=== PATIENT | female | born 1945 | race Caucasian/White ===

== ENCOUNTER 2021-12-26 12:33 | Emergency (ER) | payer MEDICARE ==
[~2021-12-26] VITALS: Ht 167.6 cm; Wt 46.0 kg
[~2021-12-26 12:33] MED LIST: AMIODARONE200 MG PO; AMIODARONE400 MG PO; CALCIUM PO; DILAUDID 2MG2 MG/TAB PO; HM LUTEIN20 MG; KENALOG15 GM/TUBE EX; LIPITOR20 MG PO; MAG PO; MET12.5TAB PO; PEPCID20 MG PO; PREDNISONE10 MG PO; VALTREX1 GM PO; VIT D PO; XARELTO20 MG PO
[2021-12-26] MEDS ORDERED: MEMANTINE HYDRO14 MG PO (12:56)
[2021-12-26] MEDS ORDERED: CARBIDOPA/LEVOD1 TA4 PO (12:57)
[2021-12-26] MEDS ORDERED: NUPLAZID34 MG PO (12:58)
[2021-12-26] MEDS ORDERED: CEPHALEXIN500 MG PO (16:36)
[2021-12-26 17:00] VITALS: BP 132/68
[2021-12-27] MEDS ORDERED: CEPHALEXIN500 MG PO (13:19)
== END 2021-12-26 17:00 | disposition home or self-care (01) ==
LOC: ED 12:33
PROC: 0HQLXZZ Repair Left Lower Leg Skin, External Approach (ICD-10-PCS; principal; 2021-12-26)
DX: S81.812A Laceration without foreign body, left lower leg, initial encounter (principal); I10 Essential (primary) hypertension; G20 Parkinson's disease; F02.80 Dementia in other diseases classified elsewhere, unspecified severity, without behavioral disturbance, psychotic disturbance, mood disturbance, and anxiety; W22.09XA Striking against other stationary object, initial encounter; Z85.038 Personal history of other malignant neoplasm of large intestine

== ENCOUNTER 2022-11-09 11:21 | Inpatient (IN) | payer MEDICARE ==
[2022-11-09] VITALS (8 sets, daily range): BP systolic 140–184; BP diastolic 60–133
[~2022-11-09] VITALS: Ht 167.6 cm; Wt 46.0 kg
[~2022-11-09 11:21] MED LIST changes: +CARBIDOPA/LEVOD1 TA4 PO; +CEPHALEXIN500 MG PO; +MEMANTINE HYDRO14 MG PO; +NUPLAZID34 MG PO
--- NOTE | 2022-11-09 13:00 | NUR ---
PATIENT ESCORTED TO ROOM VIA WHEELCHAIR IN NAD. PROVIDER NOTIFIED OF PATIENT STATUS.
--- NOTE | 2022-11-09 14:47 | NUR ---
PT IN ROOM. NO DISTRESS NOTED
--- NOTE | 2022-11-09 15:12 | NUR ---
PT WHEELED TO BATHROOM BY DAUGHTER TO PROVIDE URINE SAMPLE
[2022-11-09 15:52] LABS: URINE BILIRUBIN - DIPSTICK NEGATIVE (NEGATIVE); URINE BLOOD DIPSTICK NEGATIVE (NEGATIVE); URINE COLOR YELLOW; URINE GLUCOSE - DIPSTICK NEGATIVE (NEGATIVE); URINE KETONE TRACE mg/dL (NEGATIVE); URINE LEUK ESTERASE NEGATIVE (NEGATIVE); URINE PH 7.5 (4.5-8.0); URINE PROTEIN - DIPSTICK TRACE mg/dL (NEG-TRACE); URINE UROBILINOGEN - DIPSTICK 0.2 E.U./dL (0.2)
[2022-11-09 15:54] LABS: IMMATURE GRANULOCYTES 0.6 % (0.0-5.0); MEAN CELL VOLUME 91.6 fL CALC (80.0-100.0); MEAN CORPUSCULAR HGB 30.5 pG CALC (26.0-32.0); MEAN CORPUSCULAR HGB CONC 33.3 g/dL CAL (32.0-36.0); NEUT# 6.27 thou/uL (2.00-7.15); RED BLOOD COUNT 4.91 mill/uL (4.20-5.60); RED CELL DISTRI WIDTH 14.1 % (11.5-15.5)
[2022-11-09 16:08] LABS: URINE NITRITE - DIPSTICK NEGATIVE (Negative)
--- NOTE | 2022-11-09 16:54 | NUR ---
PT IN ROOM. NO DISTRESS NOTED. DAUGHTER IN ROOM
[2022-11-09 16:58] LABS: ALBUMIN 4.2 g/dL (3.2-5.0); ALKALINE PHOSPHATASE 56 u/l (38-126); ANION GAP 9 (6-22 (CALC)); BILIRUBIN, TOTAL 0.6 mg/dL (0.0-1.4); BUN 26 mg/dL (8-23); BUN/CREATININE RATIO 39 (12-20 (CALC)); CARBON DIOXIDE 28 mmol/l (22-30); CHLORIDE 104 mmol/l (95-108); CREATININE 0.7 mg/dL (0.5-1.0); GFR FOR AFR.AMER. > 60 ML/MIN (>=60 (CALC)); GFR OTHER RACES > 60 ML/MIN (>=60 (CALC)); POTASSIUM 4.6 mmol/l (3.5-5.1); SGOT/AST 36 u/l (9-36); SODIUM 136 mmol/l (137-146); TOTAL PROTEIN 6.7 g/dL (6.3-8.2)
--- NOTE | 2022-11-09 16:58 | NUR ---
TELECART IN ROOM PER MD ORDER.
--- NOTE | 2022-11-09 17:20 | NUR ---
DR. YUAN CALLED FOR TELESTROKE CONSULT.
[2022-11-09] MEDS ORDERED: DHIVY 100-25 MG1 TAB PO (17:33)
[2022-11-09] MEDS ORDERED: NAMENDA XR14 MG (17:34)
[2022-11-09] MEDS ORDERED: ESOMEPRAZOLE (17:35)
[2022-11-09] MEDS ORDERED: VAZALORE81 MG (17:36)
[2022-11-09] MEDS ORDERED: CARBIDOPA/LEVOD1 TA4 (17:38)
--- NOTE | 2022-11-09 18:19 | NUR ---
Admission Note Report Given to: JUAN GRAVES Transported by: Wheelchair X Stretcher Transported with: X Nurse Transporter X Patent IV O2 X Type Soldering Machine Tender Location: ICU X MS2 TO ROOM 262.
--- NOTE | 2022-11-09 20:16 | NUR ---
PATIENT RESTING IN BED-AWAKE ALERT ORIENTED TO PERSON, PLACE AND BIRTHDATE. BP-180/80- MANUAL. MEDICATED WITH APRESOLINE 10MG IVP ORDER FOR HTN VIA LAC IV SITE. SITE IS HEALTHY WITH BLOOD RFETURN. IVF NS HUNG AND INFUSING AT 75CC/HR. MEDICATED FOR GENERALIZED PAIN WITH ULTRAM 50MG PO. PATIENT WAS ABLE TO TAKE MED WITHOUT ANY DIFFICULTY WITH WATER. NO COUGH OR DIFFICULTY SWALLOWING AT THIS TIME. PATIENT WITH TELE MONITOR IN PLACE- SR-70'S. LUNGS ARE CLEAR. ABD IS SOFT WITH ACTIVE BS. PATIENT WITH EQUAL HAND GRASPS AND ABLE TO MOVE ALL EXTREMITIES. HIGH ANXIETY AT TIMES. 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 NO PERIPHERAL EDEMA NOTED AND PULSES ARE PALPABLE. SAFETY PRECAUTIONS REINFORCED. BED ALARM IN PLACE FOR PATIENT SAFETY. CALL LIGHT IN REACH. WILL CONT TO MONITOR.
--- NOTE | 2022-11-09 21:14 | NUR ---
PATIENT RESTING IN BED-DAUGHTER AT BEDSIDE. BP IS DOWN-140/60. STATES THAT SHE NEEDS TO URINATE AND MAX ASSIST OOB TO THE BSC. PATIENT WITH VERY SPASTIC MOVEMENT OF ARMS AND LEGS. PATIENT WITH HX OF PARKINSONS. WAS ABLE TO VOID MODERATE AMT OF YELLOW URINE AND ASSISTED BACK TO BED. BED ALARM IN PLACE FOR PATIENT SAFETY. SIDERAILS ARE PADDED FOR PATIENT SAFETY. CALL LIGHT IN REACH. WILL CONT TO MONITOR.
[2022-11-10] VITALS (7 sets, daily range): BP systolic 140–159; BP diastolic 60–71
--- NOTE | 2022-11-10 00:26 | NUR ---
PATIENT RESTING IN BED WITH DAUGHTER AT BEDSIDE. EYES ARE CLOSED AND RESPS ARE EVEN AND UNLABORED. IVF PATENT ANDINFUSING VIA LAC SITE AT 75CC/HR. SITE REMAINS HEALTHY AT THIS TIME. TELE MONITOR IN PLACE WITH LAST READING SR-[address] FOR PATIENT SAFETY. CALL LIGHT IN REACH. WILL CONT TO MONITOR.
--- NOTE | 2022-11-10 02:56 | NUR ---
PATIENT RESTING IN BED-IV FOUND DISLODGED WITH CATH INTACT. NEW IV STARTED TO LEFT FOREARM-#22 GAUGE WITH GOOD BLOOD RETURN. IVF NS INFUSING AT 75CC/HR. TELE MONITOR IN PLACE. DAUGHTER REMAINS AT BEDSIDE FOR PATIENT SAFETY. BED ALARM IN PLACE FOR PATIENT SAFETY. CALL LIGHT IN REACH. WILL CONT TO MONITOR.
--- NOTE | 2022-11-10 05:16 | NUR ---
PATIENT RESTING IN BED AT THIS TIME WITH DAUGHTER AT BEDSIDE. EYES ARE CLOSED AND RESPS ARE EVEN AND UNLABORED. IVFF PATENT AND INFUSING VIA LEFT FOREARM SITE AT 75CC/HR. TELE MONITOR IN PLACE WITH LAST READING SR-90'S. BED ALARM IN PLACE FOR PATIENT SAFETY. CALL LIGHT IN REACH. WILL CONT TO ABDIRASHID.
--- NOTE | 2022-11-10 08:00 | NUR ---
GOT REPORT FROM LITHARGE MILL OPERATOR NURSE. PATIENT ASSESSED. AOX4. PATIENT HAS FALL PRECAUTIONS IN PLACE. CALL LIGHT AND BED SIDE TABLE WITH IN REACH. ADVISED TO CALL IF NEEDING ANYTHING.
--- NOTE | 2022-11-10 12:00 | NUR ---
PATIENT IS SITTING UP IN BED EATING. NO SXS OF DISTRESS. NO CONCERNS OR QUESTIONS FROM PATIENT AT THIS TIME . ADVISED TO CALL IF NEEDING ANYTHING. PATIENT VERBALIZED UNDERSTANDING.
--- NOTE | 2022-11-10 17:13 | NUR ---
patient is starting to get aggitated. keep going in and having her lay down. she is unsteady on her feet. bed alarm is on and notified nurse.
--- NOTE | 2022-11-10 19:30 | NUR ---
PATIENT YAHAIRA RESTLESS AND AGITATED IN BED WITH DAUGHTERS AT BEDSIDE. STATES THAT SHE HAS BEEN LIKE THIS ALL DAY WITH HALLUCINATIONS AND THRASHING ABOUT IN THE BED. MEDICATED PATIENT WITH SINEMET ORDERED AND HEPARIN SQ. IV SITE TO LEFT FOREARM REMAINS INTACT AND HEALTHY. TELE MONITOR REAPPLIED LEADS WERE DISCONNECTED DUE TO RESTLESS ACTIVITY. PATIENT IS ORIENTED TO PERSON AND BIRTHDATE ONLY. PATIENT IS MOSTLY CONFUSED TO PLACE AND TIME-SPEAKING INAPPROPRIATELY. FAMILY REMAINS AT BEDSIDE. BED ALARM IN PLACE FOR PATIENT SAFETY. CALL LIGHT IN REACH. WILL CONT TO MONITOR.
--- NOTE | 2022-11-10 20:45 | NUR ---
PATIENT RESTING IN BED-REMAINS EXTREMELY AGITATED, HAVING HALLUCINATIONS AND SEVERE TREMORS OF HANDS. VERY RESTLESS. MEDICATED WITH HALDOL 2MG IVP ORDERED FOR AGITATION VIA LEFT FOREARM IV SITE. SITE REMAINS HEALTHY WITH GOOD BLOOD RETURN. TELE MONITOR REMAINS IN PLACE. BED ALARM IN PLACE FOR PATIENT SAFETY. CALL LIGHT IN REACH. WILL CONT TO MONITOR.
--- NOTE | 2022-11-10 23:00 | NUR ---
PATIENT CONT TO BE EXTREMELY AGITATED. THRASHING ABOUT IN THE BED. HALLUCINATING AND PICKING AT LINENS AND IN SPACE. SPEAKING OUT WITHOUT MAKING ANY SENSE. CALL PLACE TO DR. CONDE AND NEW ORDERS RECIEVED. MEDICATED WITH ATIVAN 1MG IVP VIA LEFT FOREARM SITE. SITE REMAINS HEALTHY WITH GOOD BLOOD RETURN. INCONT OF MODERATE AMT OF U RINE AND PERICARE PROVIDED. NEW BREIF WAS APPLIED. PATIENT CURRENTLY RESTING MORE QUIETLY. BED ALARM INP LACE FOR PATIENT SAFETY. CALL LIGHT IN REACH. WILL CONT TO MONITOR.
[2022-11-11] VITALS (7 sets, daily range): BP systolic 113–176; BP diastolic 47–101
--- NOTE | 2022-11-11 02:17 | NUR ---
PATIENT RESTING IN BED WITH EYES CLOSED. RESPS ARE EVEN AND UNLABORED. MUCH CALMER AT THIS TIME. TELE MONITOR IN PLACE. BED ALARM IN PLACE FOR PATIENT SAFETY. CALL LIGHT IN REACH. WILL CONT TO MONITOR.
--- NOTE | 2022-11-11 04:44 | NUR ---
PATIENT CONTINUES TO REST QUIETLY IN BED. EYES CLOSED AND RESPS ARE EVEN AND UNLBAORED. TELE MONITOR IN PLACE. IVF NS PATENT AND INFUSING VIA LEFT FOREARM SITE AT 75CC/HR. BED ALARM IN PLACE FOR PATIENT SAFETY. CALL LIGHT IN REACH. WILL CONT TO MONITOR.
--- NOTE | 2022-11-11 09:02 | NUR ---
PT IS IN BED EYES CLOSED AND HAVING HALLUCINATIONS. PT UNABLE TO ANSWER ORIENTATION QUESTIONS, AND FOLLOWS MINIMAL COMMANDS, PT HAS NO S/SX OF PAIN, SOB. PT VS ASSESSED. PT IS ON FALL PRECAUTIONS, BED ALARM ACTIVE. WILL CONTINUE TO MONITOR.
[2022-11-11 09:34] LABS: HEMOGLOBIN 14.7 g/dl (12.0-16.0); IMMATURE GRANULOCYTES 0.2 % (0.0-5.0); MEAN CELL VOLUME 91.3 fL CALC (80.0-100.0); MEAN CORPUSCULAR HGB 30.5 pG CALC (26.0-32.0); MEAN CORPUSCULAR HGB CONC 33.4 g/dL CAL (32.0-36.0); NEUT# 4.96 thou/uL (2.00-7.15); RED BLOOD COUNT 4.82 mill/uL (4.20-5.60); RED CELL DISTRI WIDTH 13.8 % (11.5-15.5)
[2022-11-11 10:29] LABS: ALBUMIN 3.8 g/dL (3.2-5.0); ALKALINE PHOSPHATASE 57 u/l (38-126); ANION GAP 9 (6-22 (CALC)); BILIRUBIN, TOTAL 0.6 mg/dL (0.0-1.4); BUN 17 mg/dL (8-23); BUN/CREATININE RATIO 30 (12-20 (CALC)); CARBON DIOXIDE 25 mmol/l (22-30); CHLORIDE 108 mmol/l (95-108); CREATININE 0.6 mg/dL (0.5-1.0); GFR FOR AFR.AMER. > 60 ML/MIN (>=60 (CALC)); GFR OTHER RACES > 60 ML/MIN (>=60 (CALC)); SGOT/AST 39 u/l (9-36); SODIUM 137 mmol/l (137-146); TOTAL PROTEIN 5.8 g/dL (6.3-8.2)
--- NOTE | 2022-11-11 10:35 | NUR ---
PT HAS BEEN TRANSPORTED TO MRI. PT REQUIRES ASSISTANCE FROM BED TO W/C. PT DAUGHTER IS WITH DURING TRANSPORT AND IS ALSO WAITING IN MRI.
--- NOTE | 2022-11-11 11:47 | NUR ---
PT HAS RETURNED BACK TO ROOM.
[2022-11-11] MEDS ORDERED: LIPITOR20 M1 PO (12:24)
--- NOTE | 2022-11-11 13:35 | NUR ---
PT BECOMING EXTREMELY AGITATED, PT WILL BE MEDICATED PROPERLY. PT HAS BED ALARM ACTIVE FOR FURTHER SAFETY. WILL CONTINUE TON MONITOR.
--- NOTE | 2022-11-11 16:39 | NUR ---
PT IS IN BED FIDGETING IN BED WITH BLANKETS, AND GOWN. PT NOT FOLLOWING BASIC COMMANDS AT THIS TIME. PT IS ON FALL PRECAUTIONS AND BED ALARM IS ACTIVE. DAUGHTER IS AT BEDSIDE.
--- NOTE | 2022-11-11 18:20 | NUR ---
PT IS SLEEPING AND RESTING IN BED, PT HAS BEEN REPOSITIONED IN BED AND HAS BED ALARM ACTIVE.
[2022-11-11] MEDS ORDERED: MEMANTINE HYDROC5 MG PO (18:58)
--- NOTE | 2022-11-11 19:30 | NUR ---
RECIEVED BEDSIDE REPORT FROM DAYSHIFT NURSE. PT IS VERY AGITATED AND CONFUSED. PT TRYING TO CLIIMB OUT OF BED, TAKING OFF TELE MONITOR, PULLING AT IV. IV SITE WAS WRAPPED WITH COBAN. BED ALARM ON AND SAFETY PRECAUTIONS IN PLACE INFORMED OF PT BEHAVIOR. MEDICATION ORDERED THROUGH [facility] AND FAXED TO PHARMACY. PT DAUGHTER WAS INFORMED OF CURRENT BEHAVIOR AND REQUESTED MEDICATION NOT BE USED. PT BEHAVIOR UNCHANGED AT THIS MOMENT. DAUGHTER IN ROOM WITH PT. SAFETY PRECAUTIONS IN PLACE AND WILL CONTINUE TO MONITOR PT.
[2022-11-12] VITALS (7 sets, daily range): BP systolic 111–186; BP diastolic 65–79
--- NOTE | 2022-11-12 00:12 | NUR ---
PT LAYING SUPINE IN BED. DAUGHTER IN ROOM AT BEDISDE WITH PT. PT STILL CONFUSED WITH MUMBLED SPEECH BUT NO SIGNS OF HIGH ANXIETY. NO S/S OF DISTRESS AND DENIES ANY PAIN AT THIS TIME. SAFETY PRECAUTIONS IN PLACE AND CALL LIGHT WITHIN REACH.
--- NOTE | 2022-11-12 04:21 | NUR ---
PT IN BED SLEEPING LAYING SUPINE. NO S/S OF DISCOMOFRT. DAUGHTER AT BEDSIDE. THANH LIGHT WITHIN REACH AND SAFETY PRECAUTIONS IN PLACE.
[2022-11-12 05:14] LABS: HEMATOCRIT 44.5 % (37.0-47.0); HEMOGLOBIN 14.9 g/dl (12.0-16.0); MEAN CELL VOLUME 92.7 fL CALC (80.0-100.0); MEAN CORPUSCULAR HGB CONC 33.5 g/dL CAL (32.0-36.0); NEUT# 4.27 thou/uL (2.00-7.15); RED BLOOD COUNT 4.8 mill/uL (4.20-5.60)
[2022-11-12 05:26] LABS: ALBUMIN 4.2 g/dL (3.2-5.0); ALKALINE PHOSPHATASE 64 u/l (38-126); ANION GAP 12 (6-22 (CALC)); BILIRUBIN, TOTAL 0.8 mg/dL (0.0-1.4); BUN 18 mg/dL (8-23); BUN/CREATININE RATIO 32 (12-20 (CALC)); CARBON DIOXIDE 28 mmol/l (22-30); CHLORIDE 106 mmol/l (95-108); CREATININE 0.6 mg/dL (0.5-1.0); GFR FOR AFR.AMER. > 60 ML/MIN (>=60 (CALC)); GFR OTHER RACES > 60 ML/MIN (>=60 (CALC)); POTASSIUM 3.8 mmol/l (3.5-5.1); SGOT/AST 44 u/l (9-36); SODIUM 143 mmol/l (137-146); TOTAL PROTEIN 6.6 g/dL (6.3-8.2)
--- NOTE | 2022-11-12 08:29 | NUR ---
PT IS SITTING UP IN BED, AND TRYING TO CONTINUOUSLY GET OOB, SPOKE TO ASSISTANT PROFESSOR IN FAMILY STUDIES AND AWAITING ORDERS. PT IS UNABLE TO ANSWER ORIENTATION QUESTIONS, NOT FOLLOWING COMMANDS AND HAS BEEN REPOSITIONED IN BED, PT HAS BEEN PLACED ON FALL PRECAUTIONS AND BED ALARM IS ACTIVE, SITTER IS AT BEDSIDE. WILL CONTINUE TO MONITOR.
--- NOTE | 2022-11-12 11:09 | NUR ---
Pt in bed in vasques position, STERILE SUPPLY TECHNICIAN taking vs. She was unable to answer any questions, She was talking some but difficult to understand. Pt not following commands and became agitated with movement. Pt not appropriate for treatment at this time.
--- NOTE | 2022-11-12 12:30 | NUR ---
PT HAS BEEN RESTLESS, DAUGHTER ARRIVED AND PT HAS SEEMED TO BECOME MORE RELAXED. PT HAS SITTER NEARBY, PT HAS BED ALARM IN PLACE. WILL CONTINUE TO MONITOR.
--- NOTE | 2022-11-12 17:03 | NUR ---
PT BECOMING RESTLESS, AND IS CLIMBING OVER BED RAILS, SITTER AND DAUGHTER PRESENT. PT HAS BEEN MEDICATED PER DR ORDER. PT IS BEING MONITORED.
--- NOTE | 2022-11-12 19:02 | NUR ---
PT IN BED, SON AT BED SITE. BREATHING IS EVEN AND NON LABORED. ASSESSED PT AT BEDSIDE. IV SITE FLUSHED. PT A/O X1. DENIES PAIN OR DISCOMFORT. PROVIDED A WARM BLANKET. CALL LIGHT BY PT. ALL SAFETY PRECAUTIONS IN PLACE AT THIS TIME
[2022-11-13] VITALS (9 sets, daily range): BP systolic 103–186; BP diastolic 58–102
--- NOTE | 2022-11-13 | NUR ---
PT IN BED SLEEPING. DAUGHTER AT BEDSIDE. TELE IN PLACE. PT RESTLESS AND SPEAKING TO PEOPLE ONLY THE PT CAN SEE. PT DENIES PAIN. ALL SAFETY PRECAUTIONS IN PLACE AT THIS TIME.
--- NOTE | 2022-11-13 00:52 | NUR ---
PT MEDICATED FOR HIGH BLOOD PRESSURE AND AGITATION. WILL CONTIUE TO MONITOR
--- NOTE | 2022-11-13 02:11 | NUR ---
MEDICATED PT FOR PAIN DUE TO PT GRIMACING, RESTLESS AND APPEARS VERY UNCOMFORTABLE
--- NOTE | 2022-11-13 04:00 | NUR ---
PT SLEEPING, BREATHING REMAINS THE SAME. DAUGHTER AT BEDSIDE. TELE IN PLACE. PT COVERED IN A WARM BLANKET. DENIES ANY NEEDS AT THIS TIME. ALL SAFETY PRECAUTIONS IN PLACE AT THIS TIME
--- NOTE | 2022-11-13 05:40 | NUR ---
PT TELE READING MAINTAINING IN THE 120s and HIGH ONE TEENS. PT ALSO RESTLESS AND CALLING OUT. INFORMED RN ON UNIT AND WAS TOLD TO MEDICATE PT WITH ATIVAN EARLY.
[2022-11-13 07:28] LABS: BASO% 0.3 % (0-3); EOS% 2.4 % (0-8); HEMATOCRIT 47.6 % (37.0-47.0); HEMOGLOBIN 15.8 g/dl (12.0-16.0); IMMATURE GRANULOCYTES 0.1 % (0.0-5.0); LYMPH% 13.2 % (15-41); MEAN CELL VOLUME 92.8 fL CALC (80.0-100.0); MEAN CORPUSCULAR HGB 30.8 pG CALC (26.0-32.0); MEAN CORPUSCULAR HGB CONC 33.2 g/dL CAL (32.0-36.0); MONO% 9.9 % (2-13); NEUT# 4.95 thou/uL (2.00-7.15); NEUT% 74.1 % (42-76); RED BLOOD COUNT 5.13 mill/uL (4.20-5.60); RED CELL DISTRI WIDTH 14.1 % (11.5-15.5)
[2022-11-13 08:06] LABS: ALBUMIN 4.1 g/dL (3.2-5.0); ALKALINE PHOSPHATASE 64 u/l (38-126); ANION GAP 14 (6-22 (CALC)); BILIRUBIN, TOTAL 0.8 mg/dL (0.0-1.4); BUN 24 mg/dL (8-23); BUN/CREATININE RATIO 33 (12-20 (CALC)); CARBON DIOXIDE 24 mmol/l (22-30); CHLORIDE 107 mmol/l (95-108); CREATININE 0.7 mg/dL (0.5-1.0); GFR FOR AFR.AMER. > 60 ML/MIN (>=60 (CALC)); GFR OTHER RACES > 60 ML/MIN (>=60 (CALC)); POTASSIUM 4.3 mmol/l (3.5-5.1); SGOT/AST 39 u/l (9-36); SODIUM 141 mmol/l (137-146); TOTAL PROTEIN 6.4 g/dL (6.3-8.2)
--- NOTE | 2022-11-13 08:18 | NUR ---
REPORT FROM ELLIE IS RECEIVED IN. ALERT AND ORIENTED PATIENT X1. RESTING IN BED WITH EYES CLOSED. PATIENT WITH SITTER'S ORDER FOR FALL PRECAUTION. SAFETY AND FALL PRECAUTIONS IN PLACE. CALL LIGHT WITHIN IN REACH.
--- NOTE | 2022-11-13 10:46 | NUR ---
SPEECH PATHOLOGY-- WELT SLASHER ATTEMPTED TO SEE PT. NOT ABLE TO WAKE UP IN AM. WILL CONTINUE TO FOLLOW FOR DIET TOLERANCE.
--- NOTE | 2022-11-13 12:00 | NUR ---
PT RESTING IN BED. STATES NO PAIN. TELE MONITOR IN PLACE. CONTINOUS MONITORING FALL/SAFTEY PRECAUTION IN PLACE, CALL LIGHT WITHIN REACH.
--- NOTE | 2022-11-13 12:37 | NUR ---
Attempted treatment this am. Daughter at bedside and reported this was the first pt had slept all week. Treatment held at this time.
--- NOTE | 2022-11-13 16:37 | NUR ---
PATIENT RESTING IN BED. RESPS ARE EVEN AND UNLABORED. PATIENT AGITATED SITTER AT BEDSIDE. TELE MONITOR IN PLACE. BED ALARM IN PLACE FOR PATIENT SAFETY. CALL LIGHT IN REACH. WILL CONT MONITOR. SITTER AT BED SIDE
--- NOTE | 2022-11-14 | NUR ---
PT IN BED WITH EYES CLOSED. UNABLE TO GET VITALS DUE RESISTANT AND SNATCHING AWAY FROM NURSE AND TECH. DAUGHTER AT BEDSIDE. DR ROQUE CALLED REGARDING INCREASED RESTLESSNESS, AGITATION AND CLINBING OUT OF BED. aWAITING ORDERS. WILL CONTINUE TO OBSERVE
[2022-11-14 06:01] LABS: BASO% 0.3 % (0-3); EOS% 2.5 % (0-8); HEMATOCRIT 45.2 % (37.0-47.0); HEMOGLOBIN 15.4 g/dl (12.0-16.0); IMMATURE GRANULOCYTES 0.2 % (0.0-5.0); LYMPH% 19.6 % (15-41); MEAN CELL VOLUME 92.1 fL CALC (80.0-100.0); MEAN CORPUSCULAR HGB 31.4 pG CALC (26.0-32.0); MEAN CORPUSCULAR HGB CONC 34.1 g/dL CAL (32.0-36.0); NEUT# 3.98 thou/uL (2.00-7.15); NEUT% 67.4 % (42-76); RED BLOOD COUNT 4.91 mill/uL (4.20-5.60); RED CELL DISTRI WIDTH 14.4 % (11.5-15.5)
[2022-11-14 06:13] LABS: ALBUMIN 4.1 g/dL (3.2-5.0); ALKALINE PHOSPHATASE 64 u/l (38-126); ANION GAP 15 (6-22 (CALC)); BILIRUBIN, TOTAL 0.6 mg/dL (0.0-1.4); BUN 43 mg/dL (8-23); BUN/CREATININE RATIO 57 (12-20 (CALC)); CARBON DIOXIDE 26 mmol/l (22-30); CHLORIDE 108 mmol/l (95-108); CREATININE 0.8 mg/dL (0.5-1.0); GFR FOR AFR.AMER. > 60 ML/MIN (>=60 (CALC)); GFR OTHER RACES > 60 ML/MIN (>=60 (CALC)); SGOT/AST 32 u/l (9-36); SODIUM 144 mmol/l (137-146); TOTAL PROTEIN 6.6 g/dL (6.3-8.2)
[2022-11-14 06:30] VITALS: BP 145/75
--- NOTE | 2022-11-14 08:00 | NUR ---
BEDSIDE SHIFT REPORT, PT SLEELPING BUT AROUSES TO TACTILE STIMULI, CONFUSED, NO SIGN DISCOMFORT, BREATHING EVEN AND NON-LABORED, TELE MONITOR IN PLACE, SITTER IN ROOM, BED LOCKED IN LOWEST POSITOIN WITH CALL CUNHA IN REACH AND ALARM ACTIVATED.
--- NOTE | 2022-11-14 11:45 | NUR ---
Pt sleeping with DISTRIBUTION CENTER SUPERVISOR present. She reported 2 person assist to bath pt this am secondary to pt restlessness. Pt was trying to get out of bed with them. Treatment held secondary to sleeping and inability to participate.
--- NOTE | 2022-11-14 12:00 | NUR ---
AGITATED AND RESTLESS AT 1200 REMOVING CLOTHING, NEW MED ORDEERED AND GIVEN, WILL CONTINUE TO MONITOR.
--- NOTE | 2022-11-14 16:00 | NUR ---
RELAXED AT THIS [id number], SITTER AT BEDSIDE, MENTATION REMAINS UNCHANGED.
[2022-11-15 05:25] VITALS: BP 128/54
[2022-11-15 06:13] LABS: BASO% 0.4 % (0-3); EOS% 3.4 % (0-8); HEMOGLOBIN 15.8 g/dl (12.0-16.0); LYMPH% 17.6 % (15-41); MEAN CELL VOLUME 92.9 fL CALC (80.0-100.0); MEAN CORPUSCULAR HGB 31.2 pG CALC (26.0-32.0); MEAN CORPUSCULAR HGB CONC 33.6 g/dL CAL (32.0-36.0); MONO% 9.3 % (2-13); NEUT# 3.5 thou/uL (2.00-7.15); NEUT% 69.3 % (42-76); RED BLOOD COUNT 5.06 mill/uL (4.20-5.60); RED CELL DISTRI WIDTH 14.1 % (11.5-15.5)
--- NOTE | 2022-11-15 06:24 | NUR ---
pT IN BED WITH EYES CLOSED. NO S/S OF DISTRESS DURING THE NIGHT. DAUGHTER AT BEDSIDE. INCONTINENCE CARE PROVIDED AND POSITION CHANGES THROUGHOUT THE NIGHT. BED IN LOW POSITION AND BED ALARM ON FOR POOR SAFETY AWARENESS AND FALL PREVENTION. WILL CONTINUE TO OBSERVE
[2022-11-15 06:33] LABS: ALKALINE PHOSPHATASE 64 u/l (38-126); ANION GAP 11 (6-22 (CALC)); BILIRUBIN, TOTAL 0.5 mg/dL (0.0-1.4); BUN 46 mg/dL (8-23); BUN/CREATININE RATIO 68 (12-20 (CALC)); CARBON DIOXIDE 26 mmol/l (22-30); CHLORIDE 109 mmol/l (95-108); CREATININE 0.7 mg/dL (0.5-1.0); GFR FOR AFR.AMER. > 60 ML/MIN (>=60 (CALC)); GFR OTHER RACES > 60 ML/MIN (>=60 (CALC)); POTASSIUM 3.9 mmol/l (3.5-5.1); SGOT/AST 26 u/l (9-36); SODIUM 142 mmol/l (137-146); TOTAL PROTEIN 6.5 g/dL (6.3-8.2)
[2022-11-15 07:07] VITALS: BP 148/60
[2022-11-15 07:52] VITALS: BP 148/60
[2022-11-15] MEDS ORDERED: QUETIAPINE FUMA25 MG PO (12:12)
[2022-11-15] MEDS ORDERED: LORAZEPAM0.5 MG PO (12:12)
[2022-11-15 12:47] VITALS: BP 151/68
== END 2022-11-15 16:00 | DRG 57 ==
LOC: ED 11:21 → ED-I 16:45 → ED 17:24 → MS2 17:25
PROVIDERS: Family Medicine; Nurse Practitioner Family; ADMIT Internal Medicine; ATTEND Internal Medicine
DX: G31.83 Neurocognitive disorder with Lewy bodies (principal); F02.C11 Dementia in other diseases classified elsewhere, severe, with agitation; G20 Parkinson's disease; I10 Essential (primary) hypertension; H54.62 Unqualified visual loss, left eye, normal vision right eye; S09.90XA Unspecified injury of head, initial encounter; W19.XXXA Unspecified fall, initial encounter; Y92.009 Unspecified place in unspecified non-institutional (private) residence as the place of occurrence of the external cause; Z85.038 Personal history of other malignant neoplasm of large intestine; Z20.822 Contact with and (suspected) exposure to COVID-19
CPT/HCPCS: G0378; J2060

== ENCOUNTER 2022-11-27 03:23 | Emergency (ER) | payer MEDICARE ==
[2022-11-27] VITALS (8 sets, daily range): BP systolic 79–161; BP diastolic 61–111
[~2022-11-27] VITALS: Ht 167.6 cm; Wt 38.0 kg
[~2022-11-27 03:23] MED LIST changes: +CARBIDOPA/LEVOD1 TA4; +DHIVY 100-25 MG1 TAB PO; +ESOMEPRAZOLE; +LIPITOR20 M1 PO; +LORAZEPAM0.5 MG PO; +MEMANTINE HYDROC5 MG PO; +NAMENDA XR14 MG; +QUETIAPINE FUMA25 MG PO; +VAZALORE81 MG
[2022-11-27] MEDS ORDERED: METOPROL TAR25 MG PO (03:43)
[2022-11-27] MEDS ORDERED: OMEPRAZOLE +2 MG/ML (03:44)
== END 2022-11-27 05:57 | disposition home or self-care (01) ==
LOC: ED 03:23
DX: S01.01XA Laceration without foreign body of scalp, initial encounter (principal); S70.02XA Contusion of left hip, initial encounter; I10 Essential (primary) hypertension; G20 Parkinson's disease; F02.80 Dementia in other diseases classified elsewhere, unspecified severity, without behavioral disturbance, psychotic disturbance, mood disturbance, and anxiety; I48.91 Unspecified atrial fibrillation; W07.XXXA Fall from chair, initial encounter; Y92.128 Other place in nursing home as the place of occurrence of the external cause

== ENCOUNTER 2023-07-01 15:54 | Emergency (ER) | payer MEDICARE ==
[~2023-07-01] VITALS: Ht 167.6 cm; Wt 42.6 kg
[2023-07-01] VITALS (24 sets, daily range): BP systolic 139–181; BP diastolic 63–122
[~2023-07-01 15:54] MED LIST changes: +METOPROL TAR25 MG PO; +OMEPRAZOLE +2 MG/ML
[2023-07-01 16:45] LABS: BASO% 0.5 % (0-3); EOS% 1.4 % (0-8); HEMATOCRIT 43.9 % (37.0-47.0); HEMOGLOBIN 14.3 g/dl (12.0-16.0); LYMPH% 20.5 % (15-41); MEAN CELL VOLUME 95.4 fL CALC (80.0-100.0); MEAN CORPUSCULAR HGB 31.1 pG CALC (26.0-32.0); MEAN CORPUSCULAR HGB CONC 32.6 g/dL CAL (32.0-36.0); MONO% 9.3 % (2-13); NEUT# 2.49 thou/uL (2.00-7.15); NEUT% 68.3 % (42-76); RED BLOOD COUNT 4.6 mill/uL (4.20-5.60); RED CELL DISTRI WIDTH 13.6 % (11.5-15.5)
[2023-07-01 17:00] LABS: ALBUMIN 3.4 g/dL (3.2-5.0); ALKALINE PHOSPHATASE 56 u/l (38-126); BILIRUBIN, TOTAL 0.7 mg/dL (0.02-1.3); BUN 32 mg/dL (8-23); BUN/CREATININE RATIO 53 (12-20 (CALC)); CHLORIDE 102 mmol/l (95-108); CREATININE 0.6 mg/dL (0.5-1.0); GFR FOR AFR.AMER. > 60 ML/MIN (>=60 (CALC)); GFR OTHER RACES > 60 ML/MIN (>=60 (CALC)); POTASSIUM 3.8 mmol/l (3.5-5.1); SGOT/AST 44 u/l (9-36); SODIUM 140 mmol/l (137-146); TOTAL PROTEIN 6.6 g/dL (6.3-8.2)
[2023-07-01 17:01] LABS: ANION GAP 10 (6-22 (CALC)); CARBON DIOXIDE 32 mmol/l (22-30)
[2023-07-01 17:44] LABS: URINE BILIRUBIN - DIPSTICK Negative (NEGATIVE); URINE BLOOD DIPSTICK Small (NEGATIVE); URINE COLOR Yellow; URINE GLUCOSE - DIPSTICK Negative (NEGATIVE); URINE KETONE 40 mg/dL (NEGATIVE); URINE LEUK ESTERASE Trace (NEGATIVE); URINE NITRITE - DIPSTICK Positive (Negative); URINE PROTEIN - DIPSTICK 30 mg/dL (NEG-TRACE)
[2023-07-01 17:54] LABS: URINE BACTERIA MANY hpf; URINE SQUAMOUS EPITHELIAL CELL FEW EPI/hpf (0-FEW)
[2023-07-01] MEDS ORDERED: KEFLEX500 MG PO (19:14)
== END 2023-07-01 21:27 ==
LOC: ED 15:54
PROVIDERS: Nurse Practitioner
DX: N39.0 Urinary tract infection, site not specified (principal); B96.20 Unspecified Escherichia coli [E. coli] as the cause of diseases classified elsewhere; U07.1 COVID-19; I10 Essential (primary) hypertension; G20 Parkinson's disease; F02.80 Dementia in other diseases classified elsewhere, unspecified severity, without behavioral disturbance, psychotic disturbance, mood disturbance, and anxiety; I48.91 Unspecified atrial fibrillation